=== PATIENT | male | born 1970 | race African-American/Black ===

== ENCOUNTER 2017-02-28 11:59 | Emergency (ER) | payer OTHER ==
[~2017-02-28] VITALS: Ht 193 cm; Wt 75.0 kg
[2017-02-28] MEDS ORDERED: PRED5TAB48 PO (12:31)
[2017-02-28] MEDS ORDERED: AZAT50TA18 PO (12:31)
[2017-02-28 16:44] VITALS: BP 135/82
== END 2017-02-28 18:05 | disposition home or self-care (01) ==
LOC: ER 13:26
DX: S39.94XA Unspecified injury of external genitals, initial encounter (principal); Z94.4 Liver transplant status; X58.XXXA Exposure to other specified factors, initial encounter; Y93.89 Activity, other specified; Y99.8 Other external cause status; Y92.89 Other specified places as the place of occurrence of the external cause
CPT/HCPCS: 76870; 99284

== ENCOUNTER 2017-05-31 11:04 | Emergency (ER) | payer OTHER ==
[~2017-05-31] VITALS: Ht 193 cm; Wt 100.0 kg
[~2017-05-31 11:04] MED LIST: AZAT50TA18 PO; PRED5TAB48 PO
[2017-05-31] MEDS ORDERED: ACETAMINOPHEN 325MG TABLET PO ONE (15:00)
[2017-05-31 15:33] VITALS: BP 117/80
== END 2017-05-31 16:21 | disposition home or self-care (01) ==
LOC: ER 13:06
DX: J02.9 Acute pharyngitis, unspecified (principal)
CPT/HCPCS: 99283